=== PATIENT | female | born 1945 | race Asian ===

== ENCOUNTER 2022-11-01 13:14 | Emergency (ER) | payer OTHER ==
[~2022-11-01] VITALS: Ht 177.8 cm; Wt 70.3 kg
[~2022-11-01 13:14] MED LIST: CIPR500T PO
[2022-11-01 13:15] VITALS: BP 178/97; TEMP 97.6
[2022-11-01 13:50] LABS: PLATELET COUNT 456 K/uL (152-353)
[2022-11-01] MEDS ORDERED: AMLO2.5T PO (15:44)
[2022-11-01] MEDS ORDERED: ELIQUIS5 MG PO (15:46)
[2022-11-01] MEDS ORDERED: CRANBERRY425 MG PO (15:46)
[2022-11-01] MEDS ORDERED: EZET10TA13 PO (15:47)
[2022-11-01] MEDS ORDERED: ARGINAID1 PAK PO (15:47)
[2022-11-01] MEDS ORDERED: FERROUS SULF325 M1 PO (15:48)
[2022-11-01] MEDS ORDERED: FURO40TA93 PO (15:49)
[2022-11-01] MEDS ORDERED: GABA400C2 PO (15:50)
[2022-11-01] MEDS ORDERED: HYDR5TAB9 PO (15:50)
[2022-11-01] MEDS ORDERED: ZYPREXA ZYDI5 MG PO (15:51)
[2022-11-01] MEDS ORDERED: MYRBETRIQ50 MG PO (15:51)
[2022-11-01] MEDS ORDERED: OMEP20CA PO (15:52)
[2022-11-01] MEDS ORDERED: K-TABS10 MEQ PO (15:53)
[2022-11-01] MEDS ORDERED: ASCO500T18 PO (15:53)
[2022-11-01] MEDS ORDERED: ARTIFICIAL TEAR1.4 % OPTH (15:53)
[2022-11-01] MEDS ORDERED: DICLOFENAC SODIUM1 % TD (15:55)
[2022-11-01] MEDS ORDERED: FLUTICASON50 MCG/ACT NAS (15:56)
[2022-11-01] MEDS ORDERED: MOBIC15 MG PO (15:57)
[2022-11-01] MEDS ORDERED: IPRATROPIUM/ INH (15:57)
[2022-11-01] MEDS ORDERED: TYLENOL325 MG PO (15:58)
[2022-11-01] MEDS ORDERED: OXYGEN (15:58)
== END 2022-11-01 14:53 | disposition still patient (30) ==
LOC: ED 13:14
PROVIDERS: Internal Medicine
DX: F03.911 Unspecified dementia, unspecified severity, with agitation (principal); Z11.52 Encounter for screening for COVID-19; Z04.6 Encounter for general psychiatric examination, requested by authority
CPT/HCPCS: 80053; 85027; 87635; 93005; 99283; U0003